=== PATIENT | male | born 1995 | race African-American/Black ===

== ENCOUNTER 2024-04-10 04:37 | Emergency (ER) | payer MEDICAID, SELFPAY ==
[2024-04-10 04:37] VITALS: BP 143/87; PULSE 58; RESP 16; TEMP 36.1; O2SAT 98; BMI 28.5
--- NOTE | 2024-04-10 04:44 | CT_ITS ---
EXAM: CT ABDOMEN AND PELVIS WITHOUT INTRAVENOUS CONTRAST CLINICAL INDICATION: right flank pain TECHNIQUE: Helically acquired images were obtained of the abdomen and pelvis without intravenous contrast. This CT exam was performed using one or more of the following dose reduction techniques: automated exposure control, adjustment of the mA and/or kV according to patient size, and/or use of iterative reconstruction technique. RADIATION DOSE: Total DLP: 357.40 mGy-cm. COMPARISON: No relevant prior studies available. FINDINGS: LOWER THORAX: Hazy dependent atelectasis at the lung bases. No pleural effusion. No coronary artery calcification is visualized. No significant pericardial effusion. ABDOMEN: LIVER: Unremarkable. Homogeneous. GALLBLADDER AND BILE DUCTS: Gallbladder measures approximately 8.2 x 4 cm in diameter. No calcified gallstones, wall thickening, pericholecystic stranding or biliary ductal dilatation. PANCREAS: Unremarkable. No focal cystic mass. SPLEEN: Unremarkable. Normal size without focal cystic or solid mass. ADRENALS: Unremarkable. No nodules. KIDNEYS AND URETERS: Unremarkable. . Normal size kidneys. No hydronephrosis or perirenal stranding. No renal or obstructing ureteral stone. STOMACH AND BOWEL: Unremarkable. No gastric mural thickening, periduodenal inflammatory changes or distended small bowel loops. No findings of small bowel obstruction, colitis or diverticulitis. PELVIS: APPENDIX: Normal appendix. No findings of acute appendicitis. BLADDER: Empty urinary bladder. REPRODUCTIVE: Unremarkable as visualized. No mass. ABDOMEN and PELVIS: INTRAPERITONEAL SPACE: Unremarkable. No ascites or other fluid collection. No free air. BONES/JOINTS: Unremarkable. No suspicious lytic or blastic abnormality. No acute osseous abnormality. SOFT TISSUES: Minimal fat filled umbilical hernia. VASCULATURE: Unremarkable. Abdominal aorta is non-dilated. LYMPH NODES: Unremarkable. No enlarged lymph nodes. CT/Abdomen/Pelvis without Cont IMPRESSION: No renal or obstructing ureteral stones. Normal appendix. Borderline distention of the gallbladder. Correlation with ultrasound may be of benefit, if biliary pathology is clinically suspected. Electronically Signed: Sanchez Dowell MD at 5:42 EDT ,
--- NOTE | 2024-04-10 04:45 | ED.VIS.BACK ---
HPI History of Present Illness Chief Complaint: Back Detail of Chief Complaint: Back pain Informant: patient Narrative Narrative: Patient presents with back pain that started yesterday. Patient states that he was playing soccer and after about 15 minutes had severe pain in his right lower back. He is never had pain like this before. Denies any pain radiating down his legs. Denies loss of bowel or bladder function. Denies weakness in extremities. Pain worse with certain movements. Patient is from [facility] and had to use the study abroad coordinator on iPad to obtain history. Patient has no medical history and no prior surgeries. PFSH PFSH Medical History no medical history Home Medications ?Medication ?Instructions ?Recorded ?Last Taken ?Type cyclobenzaprine 10 mg tablet 10 mg PO TID PRN Muscle Spasm #20 04/10/24 Unknown Rx TABLETS hydrocodone-acetaminophen 5-325mg 1 tab PO Q4H PRN PRN Pain 3 days 04/10/24 Unknown Rx 5mg-325mg #15 TABLETS naproxen 500 mg tablet (Naprosyn) 500 mg PO BID PRN pain #20 tabs 04/10/24 Unknown Rx Allergy/AdvReac Type Severity Reaction Status Date / Time No Known Allergies Allergy Verified 04/10/24 04:41 Social History Smoking Status: Never smoker ROS ROS ED Review of Systems ROS Unobtainable: other Constitutional Constitutional ED: Reports lethargy; Denies chills, fever(s), sweats or weight loss Eyes Eyes: Denies blurry vision, change in vision or diplopia ENT ENT ED: Denies rhinorrhea or sore throat Cardiovascular Cardiovascular: Denies chest pain, orthopnea or racing heartbeat Respiratory/Chest Respiratory/Chest: Denies cough, dyspnea, dyspnea on exertion, orthopnea or sputum Gastrointestinal Gastrointestinal: Denies abdominal pain, diarrhea, nausea or vomiting Genitourinary Genitourinary ED: Denies dysuria, hematuria or urinary frequency Musculoskeletal Musculoskeletal: Reports back pain; Denies arthralgias, myalgias or neck pain Integumentary Denies abscess, Abrasions or rash Neurologic Neurologic: Denies headache(s) or weakness Psychiatric Psychiatric: Denies anxiety, depression or suicidal thoughts Endocrine Endocrinology: Denies polydipsia, polyphagia or polyuria Hematologic/Lymphatic Hematologic/Lymphatic: Denies easy bleeding, easy bruising or lymphadenopathy Allergic/Immunologic Allergic/Immunologic ED: Denies mouth swelling, tongue swelling or urticaria EXAM Physical Exam Const Vital Signs: 04/10/24 04:37 Temperature 97.0 F L Temperature Source Temporal Pulse Rate 58 L Respiratory Rate 16 Blood Pressure 143/87 H Blood Pressure Mean 105 Pulse Ox 98 Oxygen Delivery Method Room Air Positive well nourished and well developed General Appearance ED: well developed and NAD HEENT Reports TM's clear and moist mucous membranes normocephalic and atraumatic; Negative for trauma or tenderness Tympanic Membrane ED: Yes TM's clear Eyes PERRL and EOMs intact bilaterally General Eye ED: Negative for pale conjunctiva or scleral icterus Neck no lymphadenopathy, supple and no JVD General: Negative for tenderness Chest Wall inspection of chest normal and palpation of chest normal Chest: Negative for tenderness Resp normal respiratory effort and clear to auscultation bilaterally Effort and Inspection: Negative for respiratory distress or pain with movement Auscultation: Negative for rhonchi, wheezes or diminished lung sounds Cardio regular rate, regular rhythm, S1 normal heart sound, S2 normal heart sound and no murmurs Peripheral Pulses: pulses 2+ throughout GI normal to inspection, nondistended, normoactive bowel sounds, soft to palpation, non-tender, non-distended and no masses Back/Spine no CVA tenderness and no thoracic nor lumbar tenderness Back/Spine Narrative: No tenderness over the thoracic or lumbar spine. Really cannot reproduce his pain. He has negative straight leg raises. He points to the right lower lumbar paraspinal area and right SI joint. Deep tendon reflexes plus 2 out of 4 bilaterally at the patella and Achilles. Patient has normal L5 extension. Patient has normal sensation to light touch. Extremity normal to inspection General Extremety ED: Negative for edema General Extremity: Negative for edema Neuro oriented x3, CN's II-XII intact bilaterally, no sensory deficits noted and gait normal Sensorium / Orientation: awake, alert, oriented to person, oriented to place and oriented to time Motor Exam: strength 5/5 throughout and strength abnormal Psych mental status grossly normal Skin no rashes or lesions noted and no wounds MDM MDM MDM Narrative Medical decision making narrative: Patient presents with low right back pain that started a while playing soccer. He had no fall or direct trauma. No radiculopathic signs or symptoms. Language barrier and using study abroad coordinator. IV line established. Patient was medicated with Dilaudid and Toradol as well as Valium. CBC with differential obtained was normal. Chemistries normal. Urinalysis normal. CT flank was unremarkable. He did have some mild distention of the gallbladder but clinically has no abdominal pain and I do not feel this is significant. Patient was reevaluated and continues to complain of pain and was given another milligram of Dilaudid. At this point I suspect lower lumbar or SI strain. Patient will be started on Flexeril and [place] and naproxen. Will refer to primary care physician for follow-up. Will discharge to home in stable condition. Lab Data Attestation: I reviewed the patient's lab results. Labs: Laboratory Results - last 24 hr 04/10/24 04:54 WBC 6.4 RBC 5.52 Hgb 16.6 H Hct 49.3 MCV 89.3 MCH 30.1 MCHC 33.7 RDW Std Deviation 40.4 RDW Coeff of Mallika 12.2 Plt Count 259 MPV 9.9 Immature Gran % (Auto) 0.200 Neut % (Auto) 39.8 L Lymph % (Auto) 49.2 H [place] % (Auto) 8.3 Eos % (Auto) 2.0 Baso % (Auto) 0.5 Absolute Neuts (auto) 2.6 Absolute Lymphs (auto) 3.15 Nucleated RBC % 0 Sodium 138 Potassium 4.1 Chloride 107 Carbon Dioxide 27.0 Anion Gap 4 L BUN 16 Creatinine 1.14 Estim Creat Clear Calc 99.26 Est GFR (MDRD) Af Amer 98 Est GFR (MDRD) Non-Af 81 BUN/Creatinine Ratio 14.0 Glucose 96 Calcium 8.7 Urine Color Yellow Urine Clarity Clear Urine pH 6.0 Ur Specific [place] 1.020 Urine Protein Negative Urine Glucose (UA) Normal Urine Ketones Negative Urine Occult Blood Negative Urine Nitrite Negative Urine Bilirubin Negative Urine Urobilinogen Normal Ur Leukocyte Esterase Negative Urine RBC 0 SEEN Urine WBC 0 SEEN Ur Squamous Epith Cells 0 SEEN Urine Bacteria 0 SEEN Urine Mucus 0 SEEN Radiography Diagnostic Testing: Clinical Impression(s) from Imaging Studies Abdomen/Pelvis CT 04/10/24 04:44 IMPRESSION: No renal or obstructing ureteral stones. Normal appendix. Borderline distention of the gallbladder. Correlation with ultrasound may be of benefit, if biliary pathology is clinically suspected. Electronically Signed: Sanchez Dowell MD at 5:42 EDT , Discharge Plan Triage Chief Complaint: Back ED Provider: Dajuan Valderrama Dx/Rx/DC Orders Clinical Impression: Back strain Instructions: ED Back Sprain/Strain Prescriptions: New cyclobenzaprine 10 mg tablet 10 mg PO TID PRN (Reason: Muscle Spasm) Qty: 20 0RF hydrocodone-acetaminophen 5-325 mg tablet 1 tab PO Q4H PRN PRN (Reason: Pain) 3 Days Qty: 15 0RF naproxen [Naprosyn] 500 mg tablet 500 mg PO BID PRN (Reason: pain) Qty: 20 0RF Primary Care Provider: Care Physician,No Primary Referrals: Timothy Sanchez MD [Med Staff - Active Staff] - 3-5 Days NOT,DEFINED [Non-Staff] - Print Language: Urdu Disposition Disposition: Home, Self Care
[2024-04-10] MEDS: Ketorolac 30 MG/ML Syringe IV (04:57)
[2024-04-10] MEDS: Ondansetron 4 MG/2 ML Vial IV (04:57)
[2024-04-10] MEDS: HYDROmorphone 1 MG/ML Syringe IV ×2 (04:58→06:45)
[2024-04-10 05:00] LABS: Bacteria 0 SEEN /hpf (None Seen); Mucous, Urine 0 SEEN /hpf (<or=2+); Red Blood Cells-Urine 0 SEEN /hpf (0-5); Squamous Epithelial Cells - UA 0 SEEN /hpf (0-5); White Blood Cells 0 SEEN /hpf (0-5)
[2024-04-10 05:01] LABS: Absolute Lymphocyte Count 3.15 X10^3/uL (0.83-4.51); Absolute Neutrophil Count 2.6 X10^3/uL (2.0-7.7); Basophil# 0.03 X10^3/uL; Basophil% 0.5 % (0-1); Color, Urine Yellow (Yellow); Eosinophil# 0.13 X10^3/uL; Glucose, Dipstick Normal (Normal); Hematocrit 49.3 % (40-54); Hemoglobin 16.6 g/dL (13.0-16.5); Ketone-Dipstick Negative (Negative); Leukocyte Esterase-Dipstick Negative /ul (Negative); Lymphocyte # 3.15 X10^3/ul (0.83-4.51); Lymphocyte % 49.2 % (19-41); Mean Corp Hgb Conc 33.7 g/dL (32-36); Mean Corpuscular Hgb 30.1 pg (27.0-32.0); Mean Corpuscular Volume 89.3 fL (80-94); Mean Platelet Vol. 9.9 fl (6.2-12.0); Monocyte# 0.53 X10^3/uL; Monocyte% 8.3 % (0-10); NRBC Flagged by Analyzer 0 % (0-5); Neutrophil # 2.55 X10^3/uL (2.7-7.7); Neutrophil % 39.8 % (47-70); Nitrite-Dipstick Negative (Negative); Occult Blood-Urine Negative /ul (Negative); Platelet Count 259 K/mm3 (150-450); Protein-Dipstick Negative (Negative); RBC Distribution Width CV 12.2 % (11.6-14.6); RBC Distribution Width SD 40.4 fl (35.1-43.9); Red Blood Count 5.52 M/mm3 (4.6-6.2); Urine Bilirubin Dipstick Negative (Negative); Urine Clarity Clear (Clear); Urine Urobilinogen Normal (Normal); White Blood Count 6.4 K/mm3 (4.4-11.0)
[2024-04-10] MEDS: 0.9% Normal Saline (1000mL) 1,000 ML 150 ML IV (05:01)
[2024-04-10] MEDS: diazePAM 5 MG Tablet PO (05:05)
[2024-04-10 05:19] LABS: Anion Gap 4 (5-15); BUN 16 mg/dL (7-18); Calcium,Total 8.7 mg/dL (8.5-10.1); Chloride 107 mmol/L (98-107); Creatinine, Serum 1.14 mg/dL (0.70-1.30); EST Glomerular Filtration Rate 81 mL/min (>60); Est Glom Filt Rate - Afr Amer 98 mL/min (>60); Estimated Creatinine Clearance 99.26 ml/min; Glucose 96 mg/dL (74-106); Potassium 4.1 mmol/L (3.5-5.1); Sodium Level 138 mmol/L (136-145)
[2024-04-10 06:59] VITALS: BP 113/68; PULSE 78; RESP 18; TEMP 36.7; O2SAT 96
== END 2024-04-10 07:00 | disposition home or self-care (01) ==
PROVIDERS: Emergency Provider Emergency Medicine; Visit Provider Emergency Medicine
DX: S39.012A Strain of muscle, fascia and tendon of lower back, initial encounter (principal); Y93.66 Activity, soccer
CPT/HCPCS: 74176; 80048; 81001; 85025; 96361; 96374; 96375; 96376; 99282; J7030; A4216; J2405